=== PATIENT | male | born 1980 | race Caucasian/White ===

== ENCOUNTER 2022-05-18 08:18 | Emergency (ER) | payer MEDICAID ==
[~2022-05-18] VITALS: Ht 182.9 cm; Wt 81.6 kg
[2022-05-18 08:58] VITALS: BP_SYST 125
[2022-05-18 10:14] LABS: BASOPHILS % (AUTO) 0.3 % (0.0-2.0); EOSINOPHILS # (AUTO) 0.4 K/uL (0.0-0.4); EOSINOPHILS % (AUTO) 3.7 % (0.0-4.0); HEMATOCRIT 38.2 % (36-54); HEMOGLOBIN 12.9 g/dL (14.0-18.0); LYMPHOCYTES # (AUTO) 1.1 K/uL (1.0-5.5); LYMPHOCYTES % (AUTO) 10.5 % (20.5-51.5); MEAN CORPUSCULAR HEMOGLOBIN 30 pg (27-31); MEAN CORPUSCULAR HGB CONC 34 % (32-36); MEAN CORPUSCULAR VOLUME 90 fL (79.0-98.0); MONOCYTES # (AUTO) 0.5 K/uL (0.0-1.0); MONOCYTES % (AUTO) 4.8 % (1.7-9.3); NEUTROPHILS # (AUTO) 8.3 K/uL (1.8-7.7); NEUTROPHILS % (AUTO) 80.7 % (40.0-70.0); PLATELET COUNT (AUTO) 263 K/uL (130-430); RED BLOOD CELL COUNT(AUTO) 4.26 MIL/uL (4.2-6.2); RED CELL DISTRIBUTION WIDTH 13.1 % (9.0-15.0); WHITE BLOOD COUNT (AUTO) 10.3 K/uL (4.8-10.8)
--- NOTE | 2022-05-18 10:23 | NUR ---
PATIENT AAOX4 SPEECH CLEAR AND COHERENT, MOVE ALL EXTREMITIES, C/O LEFT LOWER EXTREMITIES REDNESS AND SWOLLEN, AWAITING FOR EDP FOR INITIAL ASSESSMENT.
--- NOTE | 2022-05-18 10:25 | NUR ---
EDP SEEN PATIENT WITH ORDER RASHARD OUT.
[2022-05-18 10:30] LABS: CALCIUM 8.6 mg/dL (8.4-11.0); CREATININE 1.09 mg/dL (0.55-1.30)
[2022-05-18 10:43] LABS: ALBUMIN 3.7 g/dL (3.4-4.8); C-REACTIVE PROTEIN QUANT 10.7 mg/dL (0-0.5); TOTAL BILIRUBIN 0.7 mg/dL (0.0-1.0)
[2022-05-18] MEDS ORDERED: CLIN-142 PO (11:13)
--- NOTE | 2022-05-18 11:21 | NUR ---
ALL RESULT BACK EDP REASSESS PATIENT AND D/C HOME WITH INSTRUCTION.
--- NOTE | 2022-05-18 11:32 | NUR ---
CRUTCHES GIVEN WITH INSTRUCTION.
--- NOTE | 2022-05-18 11:33 | NUR ---
Patient given written and verbal discharge instructions and verbalizes understanding. ER MD discussed with patient the results and treatment provided. Patient in stable condition. ID arm band removed. IV catheter removed intact and dressing applied, no active bleeding. Rx of CLINDAMYCIN given. Patient educated on pain management and to follow up with PMD. Pain Scale 3. Opportunity for questions provided and answered. Medication side effect fact sheet provided.
== END 2022-05-18 11:33 | disposition home or self-care (01) ==
LOC: SED 08:18
DX: L03.116 Cellulitis of left lower limb (principal)
CPT/HCPCS: 36415; 80053; 83605; 85025; 86140; 99284

== ENCOUNTER 2022-05-22 04:34 | Emergency (ER) | payer MEDICAID ==
[~2022-05-22] VITALS: Ht 182.9 cm; Wt 86.2 kg
[~2022-05-22 04:34] MED LIST: CLIN-142 PO
[2022-05-22 04:58] VITALS: BP_SYST 140
[2022-05-22 06:18] VITALS: BP_SYST 114
[2022-05-22] MEDS ORDERED: PIPERACILLIN/TAZO 3.375 GM in D5W 50 ML IV ONE (06:30)
[2022-05-22] MEDS ORDERED: KETOROLAC TROMETHAMINE 30 MG VIAL IVP ONE (06:30)
[2022-05-22] MEDS ORDERED: NACL 0.9% 1,000 ML IV ONE (06:30)
[2022-05-22] MEDS ORDERED: VANCOMYCIN HCL 1,000 MG in NS 250 ML IV ONE (06:30)
[2022-05-22] MEDS ORDERED: PIPERACILLIN/TAZOBACTAM 3.375 GM/VIAL (ZOSYN) IV ONE (06:45)
[2022-05-22 06:47] LABS: BASOPHILS % (AUTO) 0.6 % (0.0-2.0); EOSINOPHILS # (AUTO) 0.2 K/uL (0.0-0.4); EOSINOPHILS % (AUTO) 3.5 % (0.0-4.0); HEMATOCRIT 33.7 % (36-54); HEMOGLOBIN 11.4 g/dL (14.0-18.0); LYMPHOCYTES # (AUTO) 2.3 K/uL (1.0-5.5); LYMPHOCYTES % (AUTO) 36.4 % (20.5-51.5); MEAN CORPUSCULAR HEMOGLOBIN 30 pg (27-31); MEAN CORPUSCULAR HGB CONC 34 % (32-36); MEAN CORPUSCULAR VOLUME 88 fL (79.0-98.0); MONOCYTES # (AUTO) 0.5 K/uL (0.0-1.0); MONOCYTES % (AUTO) 8.1 % (1.7-9.3); NEUTROPHILS # (AUTO) 3.3 K/uL (1.8-7.7); NEUTROPHILS % (AUTO) 51.4 % (40.0-70.0); PLATELET COUNT (AUTO) 318 K/uL (130-430); RED BLOOD CELL COUNT(AUTO) 3.82 MIL/uL (4.2-6.2); RED CELL DISTRIBUTION WIDTH 12.9 % (9.0-15.0); WHITE BLOOD COUNT (AUTO) 6.4 K/uL (4.8-10.8)
[2022-05-22 07:02] LABS: CALCIUM 8.6 mg/dL (8.4-11.0); CREATININE 0.92 mg/dL (0.55-1.30)
[2022-05-22 07:06] LABS: ALBUMIN 3.3 g/dL (3.4-4.8); TOTAL BILIRUBIN 0.3 mg/dL (0.0-1.0)
[2022-05-22] MEDS ORDERED: VANCOMYCIN HCL 1000 MG/VIAL IV ONE (07:52)
[2022-05-22 07:53] LABS: ERYTHROCYTE SEDIMENTATION RATE 57 MM/HR (0-15)
[2022-05-22] MEDS ORDERED: LEVO750T64 PO (09:46)
[2022-05-22] MEDS ORDERED: HYDR-3917 PO (09:46)
== END 2022-05-22 10:16 | disposition home or self-care (01) ==
LOC: SED 04:34
DX: L03.116 Cellulitis of left lower limb (principal); R22.42 Localized swelling, mass and lump, left lower limb; F15.10 Other stimulant abuse, uncomplicated; Z79.899 Other long term (current) drug therapy
CPT/HCPCS: 99284; 96365; 96375; 80053; 85025; 85651; 87040; 36415; 96368; 83605; J1885; J2543; J3370; J7050

== ENCOUNTER 2022-07-26 01:55 | Emergency (ER) | payer MEDICAID ==
[~2022-07-26] VITALS: Ht 182.9 cm; Wt 81.6 kg
[~2022-07-26 01:55] MED LIST changes: +HYDR-3917 PO; +LEVO750T64 PO
--- NOTE | 2022-07-26 02:00 | NUR ---
Pt report received. Pt c/o allergic reaction after taking his girlfriends amoxicillin for a sinus infection approximately 1 hour [employer]. Pt states that 20 minutes after taking the antibiotic, he became sweaty and his skin was itchy and red. Pt currently in NAD, no SOB, no skin rashes or discoloration noted, non-diaphoretic, VSS.
--- NOTE | 2022-07-26 02:00 | NUR ---
Patient to ER bed 05 to gown for evaluation. Side rails up. Report given to BUCK ROCHA.
[2022-07-26 02:04] VITALS: BP_SYST 126
--- NOTE | 2022-07-26 02:05 | NUR ---
Dr. Tapia at bedside assessing pt.
[2022-07-26] MEDS ORDERED: PRED20TA PO ×2 (02:20→02:23)
[2022-07-26] MEDS ORDERED: PSEU120T57 PO ×2 (02:20→02:23)
[2022-07-26] MEDS ORDERED: DIPH25CA83 PO ×2 (02:20→02:23)
[2022-07-26 02:40] VITALS: BP_SYST 116
--- NOTE | 2022-07-26 02:40 | NUR ---
Patient given written and verbal discharge instructions and verbalizes understanding. ER MD discussed with patient the results and treatment provided. Patient in stable condition. ID arm band removed. Rx of Benadryl, Prednison, and Sudafed given. Patient educated on pain management and to follow up with PMD. Pain Scale 0/10. Opportunity for questions provided and answered. Medication side effect fact sheet provided.
== END 2022-07-26 02:40 | disposition home or self-care (01) ==
LOC: SED 01:55
DX: T78.40XA Allergy, unspecified, initial encounter (principal); R21 Rash and other nonspecific skin eruption; R09.81 Nasal congestion; Z79.899 Other long term (current) drug therapy; X58.XXXA Exposure to other specified factors, initial encounter
CPT/HCPCS: 99283